=== PATIENT | female | born 1940 | race Caucasian/White ===

== ENCOUNTER 2021-08-11 20:36 | Emergency (ER) | payer OTHER ==
[~2021-08-11] VITALS: Ht 160 cm; Wt 60.0 kg
[2021-08-11] MEDS ORDERED: IPRATROPIUM BROMIDE (0.02%) 0.5MG/2.5ML NEB HHN STA (22:00)
[2021-08-11] MEDS ORDERED: ALBUTEROL (0.083%) 2.5MG/3ML NEB HHN SCH (22:00)
[2021-08-11] MEDS ORDERED: SODIUM CHLORIDE 0.9% 1,000 ML IV ONE (22:00)
[2021-08-11 22:28] LABS: BASOPHILS % 0.2 % (0.0-2.0); EOSINOPHILS % 3.4 % (0.0-5.0); HEMATOCRIT. 41.7 % (36.0-48.0); HEMOGLOBIN. 14.1 g/dL (12.0-16.0); MEAN CORPUSCULAR HEMOGLOBIN 31.2 pg (28.0-32.0); MEAN CORPUSCULAR VOLUME 92.5 fL (81.0-99.0); MEAN PLATELET VOLUME 8.4 fl (7.4-10.4); MONOCYTES % 9.2 % (2.0-8.0); NEUTROPHILS % 79.2 % (40.0-76.0); PLATELET 167 x1000/uL (130-400); RED BLOOD CELL COUNT 4.51 mill/uL (4.2-5.4); RED CELL DISTRIBUTION WIDTH 14.3 % (11.6-14.6)
[2021-08-11 22:37] LABS: CHLORIDE 105 mEq/L (98-107)
[2021-08-11] MEDS ORDERED: PREDNISONE 20MG TABLET PO NR (23:45)
[2021-08-12] MEDS ORDERED: P20 MT (00:48)
[2021-08-12 01:40] VITALS: BP 130/74
== END 2021-08-12 01:40 | disposition home or self-care (01) ==
LOC: ER 20:36
DX: R06.02 Shortness of breath (principal); I10 Essential (primary) hypertension; Z85.6 Personal history of leukemia; Z98.890 Other specified postprocedural states; Z59.00 Homelessness unspecified; Z20.822 Contact with and (suspected) exposure to COVID-19
CPT/HCPCS: 36415; 71045; 80053; 83605; 83880; 84484; 85025; 85379; 87040; 87426; 93005; 94640; 96360; 99285; C9803; J7030; J7512; Z7610